=== PATIENT | male | born 1995 | race Caucasian/White ===

== ENCOUNTER 2017-02-09 20:47 | Emergency (ER) | payer MEDICAID ==
[2017-02-09 21:47] LABS: BASOPHIL % 0.4 % (0-2); PLATELET COUNT 250 x10^3mcL (130-400); RED CELL DISTRIBUTION WIDTH 13.4 % (11.5-14.5)
[2017-02-09 21:56] LABS: CALCIUM 9.5 mg/dL (8.5-10.1); CARBON DIOXIDE 30.8 mmol/L (21-32); CHLORIDE SERUM 101 mmol/L (98-107); CREATININE SERUM 1.1 mg/dL (0.7-1.3); GFR1 > 60 mL/min; GLUCOSE SERUM 92 mg/dL (74-106); SODIUM SERUM 141 mmol/L (136-145)
[2017-02-09 22:01] LABS: ALBUMIN 4.9 g/dL (3.4-5.0); ALKALINE PHOSPHATASE 74 U/L (46-116); ALT/SGPT 27 U/L (16-63); AMYLASE 75 U/L (25-115); AST/SGOT 24 U/L (15-37); BILIRUBIN TOTAL 0.6 mg/dL (0.20-1.00); LIPASE 138 IU/L (73-393)
[2017-02-09 22:02] LABS: TOTAL PROTEIN, SERUM 8.7 g/dL (6.4-8.2)
[2017-02-09 23:01] VITALS: BP 129/66
== END 2017-02-09 23:01 | disposition home or self-care (01) ==
LOC: ED 20:47
PROVIDERS: Emergency Medicine
DX: F12.988 Cannabis use, unspecified with other cannabis-induced disorder (principal)
CPT/HCPCS: 83880; J1200; J1630; J7030